=== PATIENT | male | born 1970 | race Caucasian/White ===

== ENCOUNTER 2020-01-14 12:23 | Emergency (ER) | payer OTHER ==
[~2020-01-14] VITALS: Ht 172.7 cm; Wt 71.9 kg
[2020-01-14 12:30] VITALS: BP 123/79
--- NOTE | 2020-01-14 12:30 | NUR ---
pt bib family c/o chest pain x am after eatting, no sob, no n/v/d. PT DENIES N/V/D; SKIN IS INTACT, PINK/WARM/DRY; AAOX4, PERRL, WITH EVEN AND STEADY GAIT; LUNGS CLEAR BL, BREATHING UNLABORED; HR EVEN AND REGULAR, BL PERIPHERAL PULSES PRESENT; BS ACTIVE X4, NO TENDERNESS TO PALPATION. PT DENIES ANY FEVER, CP, SOB, OR COUGH AT THIS TIME; PT STATES 0/10 PAIN AT THIS TIME; VSS; PATIENT POSITIONED FOR COMFORT; HOB ELEVATED; BEDRAILS UP X2; BED DOWN.
--- NOTE | 2020-01-14 12:31 | NUR ---
PT AMBULATED TO ER BED 06
--- NOTE | 2020-01-14 12:36 | NUR ---
ekg done by stephanie Salinas
[2020-01-14 12:53] VITALS: BP 123/79
== END 2020-01-14 12:55 | disposition home or self-care (01) ==
LOC: MED 12:23
DX: S23.8XXA Sprain of other specified parts of thorax, initial encounter (principal); X50.0XXA Overexertion from strenuous movement or load, initial encounter; Y93.89 Activity, other specified; Y92.89 Other specified places as the place of occurrence of the external cause; Y99.0 Civilian activity done for income or pay
CPT/HCPCS: 93005; 99283